=== PATIENT | female | born 1970 | race American Indian/Alaskan Native ===

== ENCOUNTER 2021-08-23 11:46 | Emergency (ER) | payer SELFPAY ==
[2021-08-23 12:01] VITALS: BP 149/95
[2021-08-23] MEDS ORDERED: predniSONE 20 MG TAB PO ONE (15:52)
[2021-08-23] MEDS ORDERED: KETOROLAC 10 MG TAB PO ONE (15:52)
--- NOTE | 2021-08-23 16:30 | Emergency Department Report ---
ED Eye Problem HPI - General Chief complaint: Eye Problems Stated complaint: EYE DRAINAGE Time Seen by Provider: 08/23/21 15:32 Source: patient Mode of arrival: Ambulatory Limitations: No Limitations - History of Present Illness Initial comments: 51-year-old black female presents to the emergency department for evaluation of left eye drainage, itching, and redness. She states that symptoms started yesterday and has gotten progressively worse, and she woke up this morning with white crust to the left thigh and drainage to the right. She also complains of runny nose and itchy throat. She states that she has not taken any medications for her symptoms. She denies fever, shortness of breath, chest pain. MD chief complaint: eye redness -: Gradual, days(s) (1) Onset Description: gradual Location: left eye Place: home Eye Symptoms: burning, redness, foreign body sensation, itching, discharge Context: recent uri, sore throat Associated Symptoms: rhinorrhea. denies: headache, neck pain, nausea/vomiting, cough, fever, shortness of breath Treatments Prior to Arrival: none - Related Data Home Medications Medication Instructions Recorded Confirmed Last Taken metFORMIN 500 mg PO BID 08/23/21 08/23/21 Unknown Previous Rx's Medication Instructions Recorded Last Taken Type Levocetirizine Dihydrochloride 5 mg PO QPM #15 tab 08/23/21 Unknown Rx [Xyzal] Olopatadine HCl [Pataday 0.2%] 1 drop OP QDAY #1 bottle 08/23/21 Unknown Rx Allergies Allergy/AdvReac Type Severity Reaction Status Date / Time No Known Allergies Allergy Verified 08/23/21 15:29 ED Review of Systems ROS: Stated complaint: EYE DRAINAGE Other details as noted in HPI Comment: All other systems reviewed and negative Constitutional: denies: chills, fever Eyes: eye discharge. denies: eye pain, vision change ENT: congestion. denies: ear pain Respiratory: denies: cough, shortness of breath Cardiovascular: denies: chest pain, palpitations Gastrointestinal: denies: abdominal pain, nausea, vomiting Genitourinary: denies: urgency, dysuria, frequency Musculoskeletal: denies: back pain Skin: denies: rash, lesions Neurological: denies: headache, weakness ED Past Medical Hx - Past Medical History Hx Diabetes: Yes (Diet Controlled) Additional medical history: chronic back pain - Surgical History Additional Surgical History: C section x 2 - Social History Smoking Status: Never Smoker Substance Use Type: None - Medications Home Medications: Home Medications Medication Instructions Recorded Confirmed Last Taken Type Levocetirizine Dihydrochloride 5 mg PO QPM #15 tab 08/23/21 Unknown Rx [Xyzal] Olopatadine HCl [Pataday 0.2%] 1 drop OP QDAY #1 bottle 08/23/21 Unknown Rx metFORMIN 500 mg PO BID 08/23/21 08/23/21 Unknown History ED Physical Exam - General Limitations: No Limitations General appearance: alert, in no apparent distress - Head Head exam: Present: atraumatic, normocephalic - Eye Eye exam: Present: PERRL, EOMI, conjunctival injection. Absent: periorbital swelling, periorbital tenderness - Expanded Eye Exam Expanded Eyelids: Swelling: Left Pupils: Regular, Round: Bilateral, Reactive: Bilateral Sclera/Conjunctival: Injection: Right, Exudate: Right - ENT ENT exam: Present: mucous membranes moist, TM's normal bilaterally. Absent: normal exam (Bilateral mucosal edema noted), normal orophraynx (Erythema noted to posterior oropharynx) - Expanded ENT Exam Expanded Throat exam: Negative: tonsillar erythema, tonsillomegaly, tonsillar exudate - Neck Neck exam: Present: normal inspection - Respiratory Respiratory exam: Present: normal lung sounds bilaterally. Absent: respiratory distress, wheezes, rales, rhonchi, stridor, chest wall tenderness - Cardiovascular Cardiovascular Exam: Present: regular rate, normal heart sounds - GI/Abdominal GI/Abdominal exam: Present: soft, normal bowel sounds. Absent: distended, tenderness, guarding, rebound, rigid - Extremities Exam Extremities exam: Present: normal inspection, normal capillary refill - Back Exam Back exam: Present: normal inspection. Absent: CVA tenderness (R), CVA tendern ess (L), vertebral tenderness - Neurological Exam Neurological exam: Present: alert, oriented X3, CN II-XII intact, normal gait - Psychiatric Psychiatric exam: Present: normal affect, normal mood - Skin Skin exam: Present: warm, dry, intact, normal color ED Course Vital Signs 08/23/21 11:59 Temperature 98.2 F Pulse Rate 86 Respiratory 18 Rate Blood Pressure 149/95 [Right] O2 Sat by Pulse 99 Oximetry ED Medical Decision Making - Medical Decision Making 51-year-old black female presents to the emergency department for evaluation of left eye drainage, itching, and redness. She states that symptoms started yesterday and has gotten progressively worse, and she woke up this morning with white crust to the left thigh and drainage to the right. She also complains of runny nose and itchy throat. She states that she has not taken any medications for her symptoms. She denies fever, shortness of breath, chest pain. Physical exam consistent with allergic conjunctivitis and rhinitis eyes patient will be treated with Pataday and and Xyzal. She is advised to take medication as prescribed and follow-up primary care provider if no improvement or worsening symptoms. She verbalized understanding of and agreement with plan of care. Critical care attestation.: If time is entered above; I have spent that time in minutes in the direct care of this critically ill patient, excluding procedure time. ED Disposition Clinical Impression: Allergic conjunctivitis and rhinitis Qualifiers: Laterality: right Qualified Code(s): H10.11 - Acute atopic conjunctivitis, right eye Disposition: 01 HOME / SELF CARE / HOMELESS Is pt being admited?: No Does the pt Need Aspirin: No Condition: Stable Instructions: Allergic Conjunctivitis, Adult, [id number], Allergic Rhinitis, Adult, [id number] Additional Instructions: Take medications as prescribed. Follow-up with primary care provider if wor sening symptoms. Return to the emergency department as needed Prescriptions: Olopatadine HCl [Pataday 0.2%] 1 drop OP QDAY #1 bottle Levocetirizine Dihydrochloride [Xyzal] 5 mg PO QPM #15 tab Referrals: KENY CELAYA MD [Primary Care Provider] - 3-5 Days Forms: Work/School Release Form(ED) Time of Disposition: 16:30
== END 2021-08-23 17:24 | disposition home or self-care (01) ==
LOC: ED 11:46
DX: H10.13 Acute atopic conjunctivitis, bilateral (principal); J30.9 Allergic rhinitis, unspecified; E11.9 Type 2 diabetes mellitus without complications; G89.29 Other chronic pain; Z98.890 Other specified postprocedural states; Z79.899 Other long term (current) drug therapy
CPT/HCPCS: 99282